=== PATIENT | male | born 1955 | race Two or more races ===

== ENCOUNTER 2018-03-21 07:53 | Emergency (ER) | payer OTHER, BC ==
[~2018-03-21] VITALS: Ht 172.7 cm; Wt 65.8 kg
[2018-03-21] MEDS ORDERED: KAPSPARGO SPRIN50 MG PO (08:10)
[2018-03-21] MEDS ORDERED: LISINOPRIL5 MG PO (08:10)
[2018-03-21] MEDS ORDERED: K-TAB ER20 MEQ PO (08:11)
[2018-03-21] MEDS ORDERED: IBUPROFEN600 MG PO (11:20)
[2018-03-21] MEDS ORDERED: ULTRAM50 MG PO (11:20)
== END 2018-03-21 11:25 | disposition home or self-care (01) ==
LOC: ED 07:53
DX: S30.1XXA Contusion of abdominal wall, initial encounter (principal); W01.198A Fall on same level from slipping, tripping and stumbling with subsequent striking against other object, initial encounter; I10 Essential (primary) hypertension; I25.2 Old myocardial infarction; Z79.899 Other long term (current) drug therapy
CPT/HCPCS: 71101; 74177; 80053; 81001; 85025; 96361; 96374; 96375; 99284; J2270; J2405; J7030; Q9967

== ENCOUNTER 2018-03-28 10:18 | Emergency (ER) | payer OTHER, BC ==
[~2018-03-28] VITALS: Ht 172.7 cm; Wt 65.8 kg
--- OUTSIDE RECORDS SUMMARY | ~2018-03-28 | XMS | Encounter Summary ---
Demographics + + + | Address | NEED ADDRESS | | | [place] [address] | + + + | Home Phone | | + + + | Preferred Language | Unknown | + + + | Marital Status | Single | + + + | Advent Affiliation | 1001 | + + + | Race | Unknown | + + + | Ethnic Group | Unknown | + + + Author + + + | Author | [facility] | | | and [place] | + + + | Organization | [facility] | | | and [place] | + + + | Address | Unknown | + + + | Phone | Unavailable | + + + Support + + +---------+ + | Name | Relationship | Address | Phone | + + +---------+ + | Maryann Melissa | ECON | Unknown | | + + +---------+ + Care Team Providers + +------+ + | Care Slitting Machine Operator Name | Role | Phone | + +------+ + | Bob Celis MD | PCP | Unavailable | + +------+ + Reason for Visit + + + | Reason | Comments | + + + | Medication Refill | | + + + Encounter Details +--------+--------+ + + + | Date | Type | Department | Care Team | Description | +--------+--------+ + + + | 03/28/ | Refill | [facility] | Bob Celis, | Medication Refill | | 2018 | | MEDICINE [address] | [address] | | | | | [address] [place] | [place], [place] | | | | | [facility] [place] [address] | [address] | | | | | [phone] | [phone] | | | | | | | | +--------+--------+ + + + Social History + +-------+ +--------+------+ | Tobacco Use | Types | Packs/Day | Years | Date | | | | | Used | | + +-------+ +--------+------+ | Never Smoker | | | | | + +-------+ +--------+------+ + +---+---+---+ | Smokeless Tobacco: | | | | | Never Used | | | | + +---+---+---+ + + +---------+ + | Alcohol Use | Drinks/We | oz/Week | Comments | | | ek | | | + + +---------+ + | Yes | 0 | 0.0 | Social, once weekly | | | Standard | | | | | drinks or | | | | | | | | | | equivalen | | | | | t | | | + + +---------+ + + + + | Sex Assigned at | Date Recorded | | | | + + + | Not on file | | + + + as of this encounter Plan of Treatment Not on fileas of this encounter Visit Diagnoses Not on filein this encounter"
--- OUTSIDE RECORDS SUMMARY | ~2018-03-28 | XMS | Encounter Summary ---
Demographics + + + | Address | NEED ADDRESS | | | [place] [address] | + + + | Home Phone | | + + + | Preferred Language | Unknown | + + + | Marital Status | Single | + + + | Mandaeism Affiliation | 1001 | + + + | Race | Unknown | + + + | Ethnic Group | Unknown | + + + Author + + + | Author | [facility] | | | and [place] | + + + | Organization | [facility] | | | [...] Team Providers + +------+ + | Care Refrigeration Person Name | Role | Phone | + +------+ + | Bob Celis MD | PCP | Unavailable | + +------+ + Encounter Details +--------+ + + + + | Date | Type | Department | Care Team | Description | +--------+ + + + + | 03/26/ | Patient | [facility] | Bob Celis, | | | 2018 | Outreach | MEDICINE [place] | [address] | | | | | [address] | [place] | | | | | [place] | [address] | | | | | [address] | [phone] | | | | | [phone] | | | +--------+ + + + + Social History + +-------+ [...]
--- OUTSIDE RECORDS SUMMARY | ~2018-03-28 | XMS | Encounter Summary ---
Demographics + + + | Address | NEED ADDRESS | | | [place] [address] | + + + | Home Phone | | + + + | Preferred Language | Unknown | + + + | Marital Status | Single | + + + | Oriental Orthodox Affiliation | 1001 | + + + | Race | Unknown | + + + | Ethnic Group | Unknown | + + + Author + + + | Author | [facility] | | | and [place] | + + + | Organization | [facility] | | | and [...] Team Providers + +------+ + | Care Wafer Polishing Worker Name | Role | Phone | + [...] | | 2018 | Outreach | MEDICINE [place] | [address] | | | | | [address] | [place] | | | | | [place] | [address] | | | | | [address] | [phone] | | | | | [phone] | | | +--------+ + + + [...]
--- OUTSIDE RECORDS SUMMARY | ~2018-03-28 | XMS | Clinical Summary ---
Demographics + + + | Address | NEED ADDRESS | | | [place] [address] | + + + | Home Phone | | + + + | Preferred Language | Unknown | + + + | Marital Status | Single | + + + | Gnosticist Affiliation | 1001 | + + + | Race | Unknown | + + + | Ethnic Group | Unknown | + + + Author + + + | Author | [facility] | | | and [place] | + + + | Organization | [facility] | | | and [...] Team Providers + +------+ + | Care Live Truck Operator Name | Role | Phone | + +------+ + | Rocael Celis MD | PP | Unavailable | + +------+ + Allergies No Known Allergies Current Medications + + +--------+---------+------+------+-------+ | Prescription | Sig. | Disp. | Refills | Star | End | Statu | | | | | | t | Date | s | | | | | | Date | | | + + +--------+---------+------+------+-------+ | aspirin 81 mg | Take 1 tablet by | 30 | 0 | / | | Activ | | chewable tablet | mouth Daily. | tablet | | 03/22 | | e | | | | | | 15 | | | + + +--------+---------+------+------+-------+ | atorvaSTATin | Take 1 tablet by | 90 | 1 | 07/03 | | Activ | | (LIPITOR) 40 mg | mouth nightly. | tablet | | 08/22 | | e | | tabletIndications: | | | | 17 | | | | Mixed hyperlipidemia | | | | | | | + + +--------+---------+------+------+-------+ | cyanocobalamin | Take 3,000 mcg by | | | | | Activ | | (VITAMIN B-12) 1000 | mouth Daily. | | | | | e | | MCG tablet | | | | | | | + + +--------+---------+------+------+-------+ | Thiamine | Take 300 mg by | | | | | Activ | | Mononitrate (VITAMIN | mouth. | | | | | e | | B1) 100 MG TABS | | | | | | | + + +--------+---------+------+------+-------+ | potassium chloride | take 1 tablet by | 60 | 5 | 08/1 | | Activ | | (K-DUR) 20 mEq ER | mouth twice a day | tablet | | 0/20 | | e | | tablet | | | | 17 | | | + + +--------+---------+------+------+-------+ | benazepril | take 1 tablet by | 30 | 5 | 02/2 | | Activ | | (LOTENSIN) 10 mg | mouth daily | tablet | | 1/20 | | e | | tablet | | | | 18 | | | + + +--------+---------+------+------+-------+ | amLODIPine | take 1 tablet by | 30 | 5 | 02/2 | | Activ | | (NORVASC) 5 mg | mouth daily | tablet | | 1/20 | | e | | tablet | | | | 18 | | | + + +--------+---------+------+------+-------+ Active Problems + + + | Problem | Noted Date | + + + | Rotator cuff syndrome of left shoulder | 07/14/2016 | + + + | Influenza A | 07/14/2016 | + + + | Anxiety | 06/05/2014 | + + + | Lumbar radiculopathy | 05/23/2014 | + + + | Depression | 05/23/2014 | + + + | CAD (coronary artery disease) | 05/23/2014 | + + + | Cervical radiculopathy | 05/23/2014 | + + + | Routine general medical examination at a health care facility | 04/08/2014 | + + + + + | Overview: DEXA: Never | | Colonoscopy: Never | | Immunizations: Unsure | | Prostate: Never | | 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 Mild aortic, | | mitral, and tricuspid insufficiency.No significant pulmonary | | hypertension seen. Borderline left atrial enlargement. | + + + + + | Cerebellar cerebrovascular accident without late effect | 03/30/2014 | + + + | Cerebral microvascular disease | 03/30/2014 | + + + Encounters +--------+ + + + + | Date | Type | Specialty | Care Team | Description | +--------+ + + + + | 03/28/ | Refill | | Rocael Celis, | Medication Refill | | 2017 | | | MD | | +--------+ + + + + | 03/26/ | Patient | | Rocael Celis, | | 2017 | Outreach | | MD | | +--------+ + + + + from Last 3 Months Immunizations + + + + | Name | Dates Previously Given | Next Due | + + + + | PNEUMOCOCCAL | 07/14/2016 | | | POLYSACCHARIDE | | | | 23-VALENT (PPSV23) | | | + + + + | TDAP, (ADOL/ADULT) | 07/03/2011 | | + + + + Family History + + +------+ + | Medical History | Relation | Name | Comments | + + +------+ + | Diabetes | Father | | | + + +------+ + | Breast cancer | Mother | | breast with mets | + + +------+ + | Cancer | Sister | | | + + +------+ + + +------+ + + | Relation | Name | Status | Comments | + +------+ + + | Brother | | Alive | | + +------+ + + | Brother | | Alive | | + +------+ + + | Father | | Alive | | + +------+ + + | Mother | | | | | | | (Age | | | | | 47) | | + +------+ + + | Sister | | Alive | | + +------+ + + Social History + +-------+ +--------+------+ [...] on file | | + + + Last Filed Vital Signs + + + + | Vital Sign | Reading | Time Taken | + + + + | Blood Pressure | 140/84 | 01/11/2017 1533 PDT | + + + + | Pulse | 60 | 01/11/20171532 PDT | + + + + | Temperature | 36.8 C (98.2 F) | 01/04/20171423 PDT | + + + + | Respiratory Rate | 12 | 01/11/20171532 PDT | + + + + | Oxygen Saturation | 97% | 01/04/20171423 PDT | + + + + | Inhaled Oxygen | - | - | | Concentration | | | + + + + | Weight | 71.2 kg (157 lb) | 01/11/20171532 PDT | + + + + | Height | 172.7 cm (5' 8") | 01/11/20173 PDT | + + + + | Body Mass Index | 23.87 | 01/11/20173 PDT | + + + + Plan of Treatment + + + + + | Health Maintenance | Due Date | Last Done | Comments | + + + + + | Colorectal Cancer | | | | | Screening | 5 | | | | (Colonoscopy) | | | | + + + + + | Vaccine: | | 07/03/2011 | | | Dtap/Tdap/Td (2 - | 2 | | | | Td) | | | | + + + + + | Hepatitis C | Completed | 07/14/2016 | | | Screening | | | | + + + + + | Vaccine: | Completed | 07/14/2016 | | | Pneumococcal 19-64 | | | | | (PPSV23 only) Medium | | | | | Risk | | | | + + + + + Results Not on filefrom Last 3 Months Insurance +-------+--------+ +------+-------+---------+ | Payer | Benefi | Subscriber | Type | Phone | Address | | | t Plan | ID | | | | | | / | | | | | | | Group | | | | | +-------+--------+ +------+-------+---------+ | BCBS | BCBS | [id number] | PPO | | | | | OUT OF | 6 | | | | | | STATE | | | | | | | PPO | | | | | +-------+--------+ +------+-------+---------+ + +--------+ +--------+ + + | Guarantor Name | Accoun | Relation to | Date | Phone | Billing Address | | | t Type | Patient | of | | | | | | | | | | + +--------+ +--------+ + + | ROCAEL LEIJA | Person | Self [birth year] Home: | NEED ADDRESS | | | al/Fam | | 1955 | [phone] [place] | | | [place] | | [phone] | [phone] | + +--------+ +--------+ + +
--- OUTSIDE RECORDS SUMMARY | ~2018-03-28 | XMS | Encounter Summary ---
Demographics + + + | Address | NEED ADDRESS | | | [place] [address] | + + + | Home Phone | | + + + | Preferred Language | Unknown | + + + | Marital Status | Single | + + + | Hindu Affiliation | 1001 | + + + | Race | Unknown | + + + | Ethnic Group | Unknown | + + + Author + + + | Author | [facility] | | | and [place] | + + + | Organization | [facility] | | [...] Team Providers + +------+ + | Care Dinkey Locomotive Engineer Name | Role | Phone | + [...] | 03/28/ | Refill | [facility] | Bob Celis, | Medication Refill | | 2018 | | MEDICINE [address] | [address] | | | | | [address] [place] | [place], [place] | | | | | [place] [address] | [address] | | | | | [phone] | [phone] | | | | | | | [...]
--- OUTSIDE RECORDS SUMMARY | ~2018-03-28 | XMS | Clinical Summary ---
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
[~2018-03-28 10:18] MED LIST: IBUPROFEN600 MG PO; K-TAB ER20 MEQ PO; KAPSPARGO SPRIN50 MG PO; LISINOPRIL5 MG PO; ULTRAM50 MG PO
--- OUTSIDE RECORDS SUMMARY | 2018-03-28 10:26 | XMS ---
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 E.DLj VISIT COUNT (12 MO.) 2 [facility] TOTAL 2 NOTE: Visits indicate total known visits. 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
[2018-03-28] MEDS ORDERED: ULTRAM50 MG PO (13:23)
== END 2018-03-28 13:36 | disposition home or self-care (01) ==
LOC: ED 10:18
DX: S20.211A Contusion of right front wall of thorax, initial encounter (principal); I10 Essential (primary) hypertension; I25.2 Old myocardial infarction; Z79.899 Other long term (current) drug therapy; W19.XXXA Unspecified fall, initial encounter
CPT/HCPCS: 71046; 99284